=== PATIENT | female | born 1980 | race Caucasian/White ===

== ENCOUNTER 2019-09-03 15:31 | Emergency (ER) | payer OTHER, SELFPAY ==
--- NOTE | ~2019-09-03 | CT_ITS ---
EXAMINATION: CT abdomen pelvis w con DATE: 09/03/2019 17:44 INDICATION: Abdomen pain. Rectal bleeding. TECHNIQUE: Computed tomography (CT) of the abdomen and pelvis was performed with 100 cc Omnipaque 350 intravenous contrast. The dose-length product was 656.14 mGy-cm. Automated exposure control and iter ative reconstruction technique were employed. COMPARISON: None. FINDINGS: Lung bases are unremarkable. No significant pleural or pericardial effusion. Heart size nor mal. No significant vascular abnormality. No lymphadenopathy. Retroaortic left renal vein. The liver, spleen, pancreas, adrenal glands and kidneys are unremarkable. Small fat-containing umbili sanjeev hernia. There is abnormal thickening of the descending colon, consistent compatible with colitis. No evidence for perforation. Colonic diverticulosis without evidence for diverticulitis. Gallbladder is present. No lymphadenopathy. No free air or free fluid. IMPRESSION: 1. Abnormal thickening of the descending colon, compatible with colitis, most likely infectious or in flammatory. Reviewed, dictated and finalized at location A. IMPRESSION: 1. Abnormal thickening of the descending colon, compatible with colitis, most l ikely infectious or inflammatory.
[2019-09-03 15:33] VITALS: BP 168/94; PULSE 98; RESP 20; TEMP 36.9; O2SAT 99
--- NOTE | 2019-09-03 15:57 | ED.ABDPAIN ---
HPI - Abdominal Pain General Chief Complaint: Abdominal Pain Stated Complaint: Cat Rodriguez with rectal bleeding Time Seen by Provider: 09/03/19 15:46 History of Present Illness HPI narrative: Patient presents with her daughter for lower abdominal pain since yesterday. If she is quiet the pain is lower, but when she walks it is increased dramatically. She had a GI specialist at [facility], but did not have a diagnosis. She does have GERD and takes omeprazole. She has had upper endoscopy, and a motility test. She had nausea a couple times with this pain.. She has not taken anything for the pain. She says she cannot have ibuprofen products. She works at [employer] [facility] [employer] going to [place] for [employer]. He smokes cigarettes, drinks alcohol, does not do marijuana. Surgeries include tubal ligation, and uterine ablation. She has not been sick in the last couple weeks. MD elicited complaint: abdominal pain Pertinent past history: other (Similar episode) Onset (ago): day(s) Pain Consistency: constant Location: suprapubic Severity: moderate Radiation: none Migration to: periumbilical Exacerbating factors: movement Relieving factors: rest Related Data Home Medications Medication Instructions Recorded Confirmed esomeprazole magnesium 40 mg PO DAILY 09/03/19 lisinopril-hydrochlorothiazide 1 tablet 09/03/19 venlafaxine 150 mg PO DAILY 09/03/19 Allergies Allergy/AdvReac Type Severity Reaction Status Date / Time No Known Allergies Allergy Unverified 02/20/18 14:51 Review of Systems Review of Systems: Narrative: CONSTITUTIONAL: Denies fever, chills, or sweats. EYES: Denies visual changes, redness, or discharge. ENT: Denies rhinorrhea, congestion, sore throat, or otalgia. CARDIOVASCULAR: Denies chest pain, palpitations, or edema. RESPIRATORY: Denies cough or dyspnea. GASTROINTESTINAL: She has abdominal pain, nausea, but not vomiting, or diarrhea. GENITOURINARY: Denies dysuria or hematuria. SKIN: Denies rash or itching. MUSCULOSKELETAL: Denies back pain, joint pain, or myalgia. NEUROLOGIC: Denies headache, numbness, or weakness. PSYCHIATRIC: Denies anxiety or depression. All systems reviewed & are unremarkable except as noted in HPI and below PMFSH Surgical History Surgical History History of endometrial ablation History of tubal ligation Social History Social History (Updated 09/03/19 @ 16:01 by Tania Walker MD) Smoking status: Current every day smoker Alcohol intake: current Substance use: never Exam Narrative: Exam Narrative: GENERAL: Well-appearing, well-nourished, and in no acute distress. HEAD: Normocephalic, atraumatic. EYES: PERRLA and EOMI. ENT: Nares clear, no rhinorrhea or epistaxis. Mucous membranes moist. NECK: Supple. CHEST: Clear to auscultation. No respiratory distress. HEART: Regular rate and rhythm. No murmur heard. Normal peripheral pulses. ABDOMEN: Soft, nontender, nondistended, normal active bowel sounds. EXTREMITIES: Normal range of motion. No edema. SKIN: Warm, dry, no rash. NEURO: No focal deficits. Alert and oriented x3. PSYCH: Normal mood and affect. Course Reevaluation(s) Reevaluation #1: Went in to tell the patient about her colitis. She seems to understand about it. Her daughter asked multiple questions about herself having a yeast infection. I referred her to her [facility] TABLE PERSON. Date: 09/03/19 Time: 18:11 Vital Signs Vital signs: Vital Signs Temperature 98.4 F 09/03/19 15:33 Pulse Rate 98 09/03/19 15:33 Respiratory Rate 09/03/19 15:33 Blood Pressure 168/94 H 09/03/19 15:33 Pulse Oximetry 99 09/03/19 15:33 Temperature 98.4 F 09/03/19 15:33 Pulse Rate 98 09/03/19 15:33 Respiratory Rate 20 09/03/19 15:33 Blood Pressure 168/94 H 09/03/19 15:33 Pulse Oximetry 99 09/03/19 15:33 MDM - Abdominal Pain Medical Records Attestation: I reviewed the patient's medical r
[2019-09-03] MEDS: MORPHINE SULFATE 4 MG/ML INJ IV PUSH (16:11)
[2019-09-03] MEDS: ONDANSETRON INJ 4 MG/2 ML VIAL IV PUSH (16:11)
[2019-09-03] MEDS: SODIUM CHLORIDE 0.9% IV 1,000 ML 999 ML IV CONT (16:12)
[2019-09-03 16:30] LABS: Basophils Absolute Auto 0.1 K/mm3 (0.0-0.1); Basophils Percent Auto 0.6 % (0.2-1.2); Eosinophils Absolute Auto 0.1 K/mm3 (0-0.3); Eosinophils Percent Auto 1.1 % (0-4.4); Hemoglobin 12.1 g/dL (12.0-15.0); Immature Granulocyte Absolute 0.08 K/mm3 (0.00-0.031); Immature Granulocyte Percent A 0.7 % (0-0.5); Lymphocytes Absolute Auto 1.94 K/mm3 (0.9-3.2); Lymphocytes Percent Auto 16.6 % (18.3-44.2); Mean Corpuscular HGB Conc 33.6 g/dl (32-36); Mean Corpuscular Hemoglobin 29.8 pg (26-34); Mean Corpuscular Volume 88.7 fl (80-100); Mean Platelet Volume 10.6 fl (7.4-10.4); Monocytes Absolute Auto 0.6 K/mm3 (0.1-0.6); Monocytes Percent Auto 5.2 % (2.6-8.5); Neutrophils Absolute Auto 8.9 K/mm3 (1.3-6.7); Neutrophils Percent Auto 75.8 % (45.5-73.1); Platelet Count Result 274 k/mm3 (150-375); Red Blood Count 4.06 M/mm3 (4.2-5.4); Red Cell Distribution Width 14.2 % (11.5-14.5); White Blood Count 11.7 K/mm3 (4.5-10.0)
[2019-09-03 16:42] LABS: Alanine Aminotransferase 66 U/L (4-35); Albumin Level 3.9 g/dL (3.5-5.1); Alkaline Phosphatase 55 U/L (38-126); Anion Gap 11.2 mmol/L (7-16); Aspartate Amino Transferase 46 U/L (14-36); Bilirubin,Total 0.4 mg/dL (0.2-1.3); Blood Urea Nitrogen 12 mg/dL (7-17); Carbon Dioxide 25 mmol/L (22-30); Chloride 103 mmol/L (98-107); Estimated CRCL calculation 131 ml/min; Estimated Glomerular Filt Rate > 60; Glucose 90 mg/dL (65-105); Potassium 3.2 mmol/L (3.4-5.0); Sodium 136 mmol/L (137-145)
[2019-09-03] MEDS: metroNIDAZOLE 250 MG TABLET 500 MG PO (18:52)
[2019-09-03] MEDS: CIPROFLOXACIN 500 MG TAB PO (18:52)
[2019-09-03 18:57] VITALS: BP 138/72; PULSE 80; RESP 18; TEMP 36.7; O2SAT 99
== END 2019-09-03 18:59 | disposition home or self-care (01) ==
PROVIDERS: Emergency Provider Emergency Medicine
DX: K52.9 Noninfective gastroenteritis and colitis, unspecified (principal); R94.5 Abnormal results of liver function studies; F17.210 Nicotine dependence, cigarettes, uncomplicated; K21.9 Gastro-esophageal reflux disease without esophagitis; G89.29 Other chronic pain; R10.9 Unspecified abdominal pain
CPT/HCPCS: 36415; 74177; 80053; 85025; 96361; 96374; 96375; 99284; A9270; J2270; J2405; J7030; Q9967

== ENCOUNTER 2021-05-04 11:01 | Emergency (ER) | payer OTHER, SELFPAY ==
--- NOTE | ~2021-05-04 | XR_ITS ---
EXAMINATION: XR chest 1V portable DATE: 05/04/2021 13:09 INDICATION: Shortness of breath, cough and dizziness TECHNIQUE: frontal view of the chest was obtained. COMPARISON: None FINDINGS: The lungs are clear with no focal airspace opacities, pulmonary edema, pleural effusion or pneumothor ax. The cardiomediastinal silhouette is normal. Visualized bones and soft tissues are unremarkable. IMPRESSION: 1. No acute cardiopulmonary disease. Reviewed, dictated and finalized at location A.
[2021-05-04 11:23] VITALS: BP 171/103; PULSE 115; RESP 18; TEMP 36.4; O2SAT 100
--- NOTE | 2021-05-04 12:29 | ED.GENADULT ---
HPI - General Adult General Chief complaint: Unspecified Stated complaint: no taste, lightheaded Time Seen by Provider: 05/04/21 12:08 History of Present Illness HPI narrative: Patient is a 41 year old female with a history of hypertension who presents for evaluation of lightheadedness and loss of taste today. She states she has been feeling off today and is also dizzy, feeling somewhat short of breath when she ambulated into the emergency department. She had a pounding headache today which resolved without intervention. She denies any falls, loss of consciousness, chest pain, visual changes. She has been experiencing a non-productive cough for the past several days but denies a cough today. Additionally, patient was treated with amoxicillin for a presumed sinus infection 3 weeks ago. Her child is sick at home with similar symptoms. Denies fevers, abdominal pain, nausea, vomiting or diarrhea. Is vaccinated against COVID. Related Data Home Medications Medication Instructions Recorded Confirmed esomeprazole magnesium 40 mg PO DAILY 09/03/19 lisinopril-hydrochlorothiazide 1 tablet 09/03/19 venlafaxine 150 mg PO DAILY 09/03/19 lisinopril-hydrochlorothiazide tablet 05/04/21 metoprolol succinate PO 05/04/21 venlafaxine mg PO 05/04/21 Allergies Allergy/AdvReac Type Severity Reaction Status Date / Time No Known Allergies Allergy Verified 05/04/21 11:44 Review of Systems Review of Systems: All systems reviewed & are unremarkable except as noted in HPI and below [facility] Surgical History Surgical History History of endometrial ablation History of tubal ligation Social History Social History (Updated 09/03/19 @ 16:01 by Tania Walker MD) Smoking status: Current every day smoker Alcohol intake: current Substance use: never Exam Const: General: cooperative, healthy appearing and alert Nutritional Appearance: average body habitus Orientation/consciousness: oriented to person, oriented to place and oriented to time Limitations: no limitations HENMT: Head: normal to inspection, normocephalic and atraumatic Ears: unable to visualize TM (cerumen bilaterally) bilaterally General nose exam: Normal external nose present Face and sinus: normal facial exam, sinuses nontender and face symmetric Mouth: Yes Normal oral and palatal mucosa present and Yes oropharynx normal Throat: posterior oropharynx normal Eyes: General: appearance normal, both eyes and all related structures Conjunctivae: conjunctivae normal Pupils: Equal, round and reactive pupils present EOM: EOMs intact bilaterally Neck: Neck: normal visual inspection Chest: Chest palpation & inspection: normal inspection of the chest Resp: Effort & Inspection: normal respiratory effort, able to speak in complete sentences, normal respiratory pattern, no audible wheezes and no cough Auscultation: clear to auscultation bilaterally Cardio: Rate: regular rate Rhythm: regular rhythm Heart sounds: S1 normal heart sound present and S2 normal heart sound present Peripheral pulses: Peripheral pulses 2+ throughout GI: Inspection: normal to inspection GI Palp: No abdominal tenderness Auscultation: normal bowel sounds Skin: General skin exam: normal color and no rashes or lesions noted Neuro: General: oriented to person, oriented to place and moves all extremities Cranial nerves: Yes CN's II-XII intact bilaterally Speech: normal speech Psych: Appearance: grossly normal Mental Status: mental status grossly normal Speech and movement: Normal speech and movement present Course Vital Signs Vital signs: Vital Signs Temperature 97.6 F 05/04/21 11:23 Pulse Rate 115 H 05/04/21 11:23 Respiratory Rate 18 05/04/21 11:23 Blood Pressure 171/103 H 05/04/21 11:23 Pulse Oximetry 100 05/04/21 11:23 Temperature 97.6 F 05/04/21 11:23 Pulse Rate 92 05/04/21 13:46 Respiratory Rate 16 03
--- NOTE | 2021-05-04 12:38 | ECG_ITS ---
Measurements Intervals [place] Rate: 90 P: 53 WA: 160 QRS: 10 QRSD: 78 T: 42 QT: 335 QTc: 410 Interpretive Statements SINUS RHYTHM NORMAL ECG NO PREVIOUS ECG AVAILABLE FOR COMPARISON Electronically Signed On 05-04-2021 17:36:56 CDT by Silvio Nicole M.D.
[2021-05-04 13:17] LABS: Basophils Absolute Auto 0.1 K/mm3 (0.0-0.1); Basophils Percent Auto 0.7 % (0.2-1.2); Eosinophils Absolute Auto 0.1 K/mm3 (0-0.3); Eosinophils Percent Auto 1.3 % (0-4.4); Hematocrit 40.3 % (37.0-47.0); Hemoglobin 13.3 g/dL (12.0-15.0); Immature Granulocyte Absolute 0.11 K/mm3 (0.00-0.031); Lymphocytes Absolute Auto 2.65 K/mm3 (0.9-3.2); Mean Corpuscular Hemoglobin 30.5 pg (26-34); Mean Corpuscular Volume 92.4 fl (80-100); Mean Platelet Volume 10.2 fl (7.4-10.4); Monocytes Absolute Auto 0.6 K/mm3 (0.1-0.6); Monocytes Percent Auto 5.4 % (2.6-8.5); Neutrophils Absolute Auto 7.1 K/mm3 (1.3-6.7); Neutrophils Percent Auto 66.6 % (45.5-73.1); Platelet Count Result 352 k/mm3 (150-375); Red Blood Count 4.36 M/mm3 (4.2-5.4); Red Cell Distribution Width 14.5 % (11.5-14.5); White Blood Count 10.6 K/mm3 (4.5-10.0)
[2021-05-04 13:29] LABS: Alanine Aminotransferase 24 U/L (4-35); Albumin Level 4.3 g/dL (3.5-5.1); Alkaline Phosphatase 30 U/L (38-126); Anion Gap 7 mmol/L (8-16); Aspartate Amino Transferase 24 U/L (14-36); Bilirubin,Total 0.4 mg/dL (0.2-1.3); Blood Urea Nitrogen 19 mg/dL (7-17); Calcium 8.8 mg/dL (8.4-10.2); Carbon Dioxide 30 mmol/L (22-30); Chloride 101 mmol/L (98-107); Estimated CRCL calculation 91 ml/min; Estimated Glomerular Filt Rate > 60; Glucose 97 mg/dL (65-110); Potassium 3.5 mmol/L (3.4-5.0); Sodium 138 mmol/L (137-145)
[2021-05-04 13:41] LABS: Troponin I < 0.012 ng/mL (0.000-0.034)
[2021-05-04 13:46] VITALS: BP 133/85; PULSE 92; RESP 16; O2SAT 97
[2021-05-04 14:31] LABS: SARS-CoV-2 RNA PCR Negative
== END 2021-05-04 14:30 | disposition home or self-care (01) ==
PROVIDERS: Physician Assistant; Emergency Provider Emergency Medicine
DX: R42 Dizziness and giddiness (principal); Z20.822 Contact with and (suspected) exposure to COVID-19; I10 Essential (primary) hypertension; F17.200 Nicotine dependence, unspecified, uncomplicated
CPT/HCPCS: 36415; 71045; 80053; 84484; 85025; 93005; 99284; C9803; U0003; U0005

== ENCOUNTER 2021-10-30 15:08 | Emergency (ER) | payer OTHER, SELFPAY ==
--- NOTE | ~2021-10-30 | XR_ITS ---
XR chest 2V DATE: 10/30/2021 15:46 INDICATION: Difficulty breathing for 3 weeks. Smoker. TECHNIQUE: 2 views COMPARISON: 05/04/2021 portable AP chest FINDINGS: Normal heart size. No hilar or mediastinal enlargement. No pulmonary infiltrate or consolid ation, pleural effusion or pulmonary vascular congestion or pneumothorax. Included skeletal structure s are unremarkable other than mild upper thoracic levoscoliosis. IMPRESSION: No active cardiopulmonary disease Reviewed, dictated and finalized at location A.
[2021-10-30 15:17] VITALS: BP 139/95; PULSE 108; RESP 16; TEMP 37.3; O2SAT 99
--- NOTE | 2021-10-30 15:18 | ED.URI ---
HPI - URI/Sore Throat General Chief Complaint: Upper Respiratory Infection Stated Complaint: shortness of breath, headache Time Seen by Provider: 10/30/21 15:18 History of Present Illness HPI Narrative: Danielle Albarran us a 41 yo female with a PMH of HTN, GERD, comes to [facility] complaining of an upper respiratory infection where she received a Z-Tremaine from her primary care doctor and she still does not feel any better. She is afebrile and is tachycardic. States she is fatigued, Related Data Home Medications Medication Instructions Recorded Confirmed esomeprazole magnesium 40 mg 40 mg PO DAILY 09/03/19 10/30/21 capsule,delayed release lisinopril 10 1 tablet PO DAILY 09/03/19 10/30/21 mg-hydrochlorothiazide 12.5 mg tablet venlafaxine 150 mg 150 mg PO DAILY 09/03/19 10/30/21 capsule,extended release 24 hr metoprolol succinate 50 mg 50 mg PO DAILY 05/04/21 10/30/21 tablet,extended release 24 hr Allergies Allergy/AdvReac Type Severity Reaction Status Date / Time No Known Allergies Allergy Verified 10/30/21 15:24 Review of Systems Review of Systems: CONSTITUTIONAL: Denies fever, chills, sweats. Fatigue, has shortness of breath EYES: Denies visual changes, redness, discharge. ENT: Denies rhinorrhea, has congestion, sore throat, otalgia. CARDIOVASCULAR: Denies chest pain, palpitations, edema. RESPIRATORY: Denies dyspnea, wheezing, has cough GASTROINTESTINAL: Denies abdominal pain, nausea, vomiting, diarrhea. GENITOURINARY: Denies dysuria, hematuria, abnormal discharge SKIN: Denies rash or itching. NEUROLOGIC: Denies numbness, or focal weakness. PSYCHIATRIC: Denies anxiety or depression. PMFSH Surgical History Surgical History History of endometrial ablation History of tubal ligation Social History Social History Smoking status: Current every day smoker Alcohol intake: current Substance use: never Comments At time of signature, I agree with nursing past medical, surgical, social and family history. There is no relevant family history pertinent to the presenting complaint. Exam Narrative: GENERAL: This is a well-nourished, well-developed patient, in mild distress. Complaining of severe fatigue HEAD: normocephalic, atraumatic. EYES: PERRL. Sclera clear/white. Vision is grossly intact. EARS: External ears normal, auditory canals clear and without drainage, TMs normal without perforation. Hearing grossly intact. NOSE: External nose normal without nasal discharge, nares without redness, no rhinorrhea. THROAT: Mucous membranes moist, posterior pharynx mild erythema NECK: Neck supple, non-tender CARDIOVASCULAR: Tachycardic rate and rhythm without murmurs, gallops, or rubs. RESPIRATORY: Diminished to auscultation. Breath sounds coarse but equal bilaterally. No wheezes, rales, or rhonchi. GASTROINTESTINAL: Not done SKIN: warm, intact with no suspicious lesions or rash, good texture and turgor. NEURO: awake, alert, and oriented to person, place and time. There were no obvious focal neurologic abnormalities. Steady gait EXTREMITIES: Normal range of motion. BACK: Nontender without deformity Course Course Emergency Course: Patient here with 3 weeks of fatigue and not feeling well has had 2 negative COVID tests and a Z-Tremaine but still is not doing any better states that she feels like her headaches moving down to her chest she is tachycardic but she is afebrile COVID test- negative Flu test- negative Chest x-ray-no heart size no hilar or mediastinal enlargement no pulmonary input infiltrate or consolidation no active cardiopulmonary disease Started on steroids, Tessalon Perles Level of Care: Express Care Visit Vital Signs Vital signs: Vital Signs Temperature 99.2 F 10/30/21 15:17 Pulse Rate 108 H 10/30/21 15:17 Respiratory Rate 16 10/30/21 15:17 Blood Pressure 139/95
== END 2021-10-30 16:12 | disposition home or self-care (01) ==
PROVIDERS: Emergency Provider Nurse Practitioner
DX: R05.1 Acute cough (principal); R53.83 Other fatigue; Z20.822 Contact with and (suspected) exposure to COVID-19; F17.200 Nicotine dependence, unspecified, uncomplicated; I10 Essential (primary) hypertension; K21.9 Gastro-esophageal reflux disease without esophagitis
CPT/HCPCS: 71046; 87426; 87804; 99213; C9803; G0463